=== PATIENT | male | born 1950 | race Caucasian/White ===

== ENCOUNTER 2019-04-24 07:54 | Outpatient (CLI) | payer MEDICARE ==
[~2019-04-24 07:54] MED LIST: EPINEPHrine 1 MG/ML AMP ONE; Gadobenate Dimeglumine 529 MG/1 ML (20ML VIAL) ONE; Iopamidol 300 61% 30 ML VIAL ONE; Lidocaine 1% PF 5 ML VIAL ONE
--- NOTE | 2019-04-24 10:35 | MRI ---
MR ARTHROGRAM RIGHT SHOULDER: Date: 04/24/19 PROVIDED CLINICAL HISTORY: Rotator cuff tear. FINDINGS: There is full thickness, essentially full width tearing of the supraspinatus from the foot plate with about 1 cm of retraction. There is an irregular appearance to the cranial fibers of the subscapulari s tendon with interstitial contrast material noted, which could be iatrogenic. The components of the rotator cuff appear otherwise normal. The glenoid labrum and glenohumeral articular cartilage demonstrate no significant abnormality. Acromioclavicular joint osteoarthrosis is demonstrated without significant mass effect upon the subja cent supraspinatus. Rotator cuff muscular volume appears preserved. No focal concerning regional pojoa ow or muscular signal abnormality apparent. IMPRESSION: 1. Full thickness, full width minimally retracted tear of the supraspinatus tendon at the foot plate . 2. Appearance of the subscapularis as described. 3. Acromioclavicular joint osteoarthrosis. POS: TPC
--- NOTE | 2019-04-24 11:28 | RAD ---
Arthrogram right shoulder HISTORY: Internal derangement. Right shoulder pain. FINDINGS: After explaining the procedure and answering all questions, the anterior aspect of the [facility] t shoulder was prepped and draped in usual sterile fashion. Sterile technique, buffered local anesthesia, fluoroscopic guidance, and an anterior approach were used to carefully advance a 22-gauge spinal needle to the joint capsule at the level of the humeral head. A total volume of 10 cc containing normal saline, 1% lidocaine, iodinated contrast, and small amounts of gadolinium and epinephrine were then instilled into the joint capsule under fluoroscopic control. Needle was removed. Initial images show contrast remaining within the joint capsule. Patient tolerated the procedure well and was transferred to MRI in good condition for further monitoring. Fluoroscopy time 0.3 minutes. IMPRESSION: Technically successful right shoulder arthrogram. Postarthrogram MRI is pending.
[2019-04-24] MEDS ORDERED: Gadobenate Dimeglumine 529 MG/1 ML (20ML VIAL) ONE (16:09)
== END 2019-04-24 07:55 | disposition home or self-care (01) ==
LOC: RAD 07:54
PROVIDERS: ATTEND Orthopaedic Surgery
DX: M75.101 Unspecified rotator cuff tear or rupture of right shoulder, not specified as traumatic (principal); M19.011 Primary osteoarthritis, right shoulder
CPT/HCPCS: 23350; A9577; J0171; J2001; Q9967

== ENCOUNTER 2019-07-16 06:30 | Outpatient (CLI) | payer MEDICARE ==
[2019-07-16 10:56] LABS: #Basophils 0.1 thou/uL (0.0-0.2); #Eosinphils 0.2 thou/uL (0.0-0.7); #Lymphocytes 2.7 thou/uL (1.20-3.40); #Monocytes 0.6 thou/uL (0.11-0.59); %Basophils 0.7 % (0.0-1.0); %Eosinophils 1.9 % (0.0-10.0); %Lymphocytes 31.4 % (21.0-51.0); %Monocytes 7.2 % (0.0-10.0); %Neutrophils 58.9 % (42.0-75.0); Hemoglobin 15.2 g/dL (14.0-18.0); Mean Corpuscular HGB CONC 33.1 g/dL (32.0-36.0); Mean Corpuscular Hemoglobin 31.1 pg (27.0-31.0); Mean Platelet Volume 8.8 fL (7.4-10.4); Platelet Count 145 thou/uL (130-400); Red Blood Cell (RBC) Count 4.89 mill/uL (4.70-6.10); White Blood Cell (WBC) Count 8.5 thou/uL (4.8-10.8)
[2019-07-16 11:27] LABS: Anion Gap 13 mmol/L (10-20); BUN (Urea Nitrogen) 15 mg/dL (8.4-25.7); Calc. Creatinine Clearance 0 mL/min (70-130); Calcium 9.8 mg/dL (7.8-10.44); Carbon Dioxide 25 mmol/L (23-31); Chloride 106 mmol/L (98-107); Estimated GFR-MDRD 75; Glucose 122 mg/dL (80-115); Potassium 4.5 mmol/L (3.5-5.1); Sodium 139 mmol/L (136-145)
--- NOTE | 2019-07-16 16:51 | EKG ---
Test Reason : Blood Pressure : / mmHG Vent. Rate : 066 BPM Atrial Rate : 066 BPM P-R Int : 160 ms QRS Dur : 074 ms QT Int : 404 ms P-R-T Axes : 039 041 020 degrees QTc Int : 423 ms Normal sinus rhythm Cannot rule out Anterior infarct , age undetermined Abnormal ECG Confirmed by NEIL EASLEY ([id number]) on 07/16/2019 4:51:14 PM Referred By: IERO Confirmed By:NEIL EASLEY
== END 2019-07-16 06:31 | disposition home or self-care (01) ==
LOC: LABBT 06:30
PROVIDERS: ATTEND Orthopaedic Surgery
DX: Z01.818 Encounter for other preprocedural examination (principal); M75.101 Unspecified rotator cuff tear or rupture of right shoulder, not specified as traumatic
CPT/HCPCS: 80048; 85025; 93005; 93010

== ENCOUNTER 2019-07-17 06:22 | Day surgery (SDC) | payer MEDICARE ==
[2019-07-16 10:12] VITALS: BMI 25.0
[2019-07-17] MEDS ORDERED: Midazolam HCl 2 mg/2 ml Vial ONE (06:31)
[2019-07-17] MEDS ORDERED: Fentanyl 100 MCG/2 ML VIAL ONE ×2 (06:31→09:20)
[2019-07-17] MEDS ORDERED: Ropivacaine 0.2% HCl/PF 20 ML ONE (06:32)
[2019-07-17] MEDS ORDERED: Bupivacaine/Epinephrine 0.25% 30 ML VIAL ONE (08:32)
[2019-07-17] MEDS ORDERED: Promethazine HCl 25 MG/ML VIAL IM PRN (11:01)
[2019-07-17] MEDS ORDERED: Ropivacaine 0.2% 550 ML 550 ML NERVE BLCK SCH (11:01)
[2019-07-17] MEDS ORDERED: HYDROcodone/Acetaminophen 10/325 mg Tablet PO PRN ×2 (11:01)
[2019-07-17] MEDS ORDERED: traMADol HCl 50 MG TAB PO PRN ×2 (11:01)
[2019-07-17] MEDS ORDERED: Ondansetron PF 4 MG/2 ML Vial IVP PRN (11:01)
[2019-07-17] MEDS ORDERED: Fentanyl 100 MCG/2 ML VIAL IV PRN (11:01)
[2019-07-17] MEDS ORDERED: Zolpidem Tartrate 5 MG TAB PO PRN (11:01)
[2019-07-17] MEDS ORDERED: Rocuronium Bromide 10 MG/ML (10ML VIAL) ONE (11:42)
[2019-07-17] MEDS ORDERED: Lidocaine 1% PF 5 ML VIAL ONE (11:42)
[2019-07-17] MEDS ORDERED: Ondansetron PF 4 MG/2 ML Vial ONE (11:42)
[2019-07-17] MEDS ORDERED: PROPOFOL 200 MG/20 ML VIAL ONE (11:42)
[2019-07-17] MEDS ORDERED: Morphine 2 MG/ML SYRINGE ONE (11:42)
[2019-07-17] MEDS ORDERED: Ropivacaine 0.5% HCl/PF (150 MG/30 ML VIAL) ONE (11:42)
[2019-07-17] MEDS ORDERED: Ketorolac Tromethamine 30 MG/ML VIAL IVP SCH ×2 (12:00→12:15)
[2019-07-17] MEDS ORDERED: Ketorolac Tromethamine 30 MG/ML VIAL ONE (12:09)
--- NOTE | 2019-07-17 12:37 | OP ---
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 PROCEDURES PERFORMED: 1. Right shoulder arthroscopy with arthroscopic rotator cuff repair. 2. Open biceps tenodesis. [employer] SPECIALIST: Yahir Pedersen PA-C ESTIMATED BLOOD LOSS: Minimal. COMPLICATIONS: None. ANESTHESIA: He had a general anesthetic. He also had a preoperative block. IMPLANTS: We used 2 Titanium double-loaded anchors for the rotator cuff repair. We used a 7 x 23 BioComposite Bio-Tenodesis screw for the biceps. DISPOSITION: He went to recovery room in stable condition. INDICATIONS: This is a 68-year-old active male, who comes in complaining of right shoulder pain and weakness. He has failed nonoperative treatment and at this time wished to have his cuff repaired. DESCRIPTION OF PROCEDURE: After all appropriate consent forms were explained and signed, he was taken back to the operative room and at this time was given general anesthetic. Once the level of anesthesia was appropriate, he was rolled into the left lateral decubitus position. All bony prominences were well padded. Axillary roll was placed underneath the left axilla. The beanbag was inflated to hold in this position. The arm was then taken through full range of motion and then suspended with 15 pounds in standard arthroscopic fashion. The right shoulder and upper extremity were prepped and draped in standard surgical fashion. Bony anatomical landmarks were then drawn out and the subacromial space was infiltrated with Marcaine with epinephrine. Posterior portal was established. Scope was placed into the shoulder joint. Anterior working portal was then made using a needle localization technique. Diagnostic arthroscopy commenced in the glenohumeral joint. The articular surface of the humeral head and glenoid were in good condition. No loose bodies were noted in the axillary pouch. He has significant degenerative SLAP tear as well as going into the anterior labrum. The subscapularis was intact. The cuff was found to be torn. At this time, blank were introduced. The cuff was debrided from the undersurface. Labrum was debrided. A green cannula was placed anteriorly and an 18-gauge needle was used to edmondson the biceps and placed a stitch through the tendon itself. The surface energy was used to cut the tendon off the superior labrum and at this time, we debrided the undersurface of the rotator cuff tear as well. We then removed the scope, replaced in the subacromial space. Lateral working portal was then made. Diagnostic arthroscopy commenced in the subacromial space. Bursa was removed from off the underlying cuff. One tendon cuff tear was noted. The edges were debrided. Soft tissue was removed off the tuberosity insertion site and slight decortication was performed using the shaver. No significant bony decompression was performed. At this time, PassPort cannula was placed laterally and we then placed our two double-loaded anchors into the tuberosity followed by pulling all the sutures out the front. Scorpion device was used to pass the sutures in simple fashion through the tendon going from front to back. We then tied these from back to front. This gave us an excellent cuff repair. We then removed the scope and drained the shoulder. A 15 blade was then used to incise down through skin. Bovie was used to coagulate any brisk venous bleeding. Deltoid fascia was opened sharply and finger dissection was used to get down to the underlying transverse humeral ligament. This was opened up. Biceps tendon was pulled out. There was significant amount of synovitis noted and this was removed. At this time, the tendon was sutured. Intra-articular portion was removed sharply. A pin was placed. A 7.5 mm reamer was used to ream down to a depth of 25 and a 7 x 23 BioComposite Bio-Tenodesis screw was then used. At this time, the sutures were tied over top of this, so the screw could not back up on itself and the sutures were cut. We then thoroughly irrigated and dried. We allowed the deltoid to close upon itself. A running suture was then used to close our deltoid fascia, 2-0 Vicryl and nylon sutures were used on skin. Each portal was then closed with a simple nylon stitch. Bulky sterile dressing was applied. The patient was then awakened. He was taken to the recovery room in stable condition. All counts were correct at the end of the case and he did receive preoperative IV antibiotics. Job ID: [id number]
== END 2019-07-17 13:50 | disposition home or self-care (01) ==
LOC: SDC 06:22
PROVIDERS: ATTEND Orthopaedic Surgery
PROC: 0LQ14ZZ Repair Right Shoulder Tendon, Percutaneous Endoscopic Approach (ICD-10-PCS; principal; 2019-07-17)
PROC: 0RHJ44Z Insertion of Internal Fixation Device into Right Shoulder Joint, Percutaneous Endoscopic Approach (ICD-10-PCS; 2019-07-17)
PROC: 0RNJ4ZZ Release Right Shoulder Joint, Percutaneous Endoscopic Approach (ICD-10-PCS; 2019-07-17)
PROC: 0LS10ZZ Reposition Right Shoulder Tendon, Open Approach (ICD-10-PCS; 2019-07-17)
PROC: 0RHJ04Z Insertion of Internal Fixation Device into Right Shoulder Joint, Open Approach (ICD-10-PCS; 2019-07-17)
PROC: 3E0T3BZ Introduction of Anesthetic Agent into Peripheral Nerves and Plexi, Percutaneous Approach (ICD-10-PCS; 2019-07-17)
DX: S43.431A Superior glenoid labrum lesion of right shoulder, initial encounter (principal); M25.311 Other instability, right shoulder; M75.121 Complete rotator cuff tear or rupture of right shoulder, not specified as traumatic; G89.18 Other acute postprocedural pain; E78.5 Hyperlipidemia, unspecified; E78.00 Pure hypercholesterolemia, unspecified; M50.10 Cervical disc disorder with radiculopathy, unspecified cervical region; Z79.899 Other long term (current) drug therapy
CPT/HCPCS: 23430; 29826; 29827; 64416; 97139; A4306; C1713; J0690; J1885; J2250; J2270; J2795; J3010

== ENCOUNTER 2019-08-03 17:40 | Outpatient (CLI) | payer MEDICARE ==
--- NOTE | 2019-08-03 18:38 | ULT ---
Exam: Right upper extremity venous duplex ultrasound including color and spectral Doppler imaging: HISTORY: Right upper extremity swelling FINDINGS: The right upper extremity deep venous system is evaluated including the right internal jugular, subcl sarika, axillary, brachial, and radial and ulnar veins as well as the basilic and cephalic vein regions. There is evidence for obstructing thrombus within the upper brachial vein. There is also evidence for obstructing thrombus within the right basilic vein IMPRESSION: Evidence for deep venous thrombosis in obstructing thrombus involving the upper right brachial vein. Additionally there is obstructing thrombus within the right basilic vein. Findings were discussed with Dr. Jarvis by phone at 6:24 PM.
== END 2019-08-03 17:41 | disposition home or self-care (01) ==
LOC: ULT 17:40
PROVIDERS: ATTEND Orthopaedic Surgery
DX: M79.621 Pain in right upper arm (principal); M79.89 Other specified soft tissue disorders; I82.621 Acute embolism and thrombosis of deep veins of right upper extremity